=== PATIENT | male | born 1960 | race Caucasian/White ===

== ENCOUNTER 2018-10-21 15:43 | Emergency (ER) | payer OTHER ==
[~2018-10-21] VITALS: Ht 177.8 cm; Wt 122.5 kg
[~2018-10-21 15:43] MED LIST: GLUCOPHAGE1000 MG PO; K-DUR 20 MEQ T20 MEQ PO; LANTUS SUBQ; LASIX 40 MG TAB40 M1 PO; NORCO 5-325 TA1 EACH PO; OMEGA-31000 MG PO; PHENERGAN 25 MG25 M1 PO; VALIUM5 MG PO; ZOFRAN ODT4 MG PO
[2018-10-21 15:59] LABS: URINE BILIRUBIN NEGATIVE (Negative); URINE BLOOD NEGATIVE (Negative); URINE CLARITY CLEAR; URINE COLOR YELLOW; URINE GLUCOSE-RANDOM* 1+ (Negative); URINE KETONES NEGATIVE (Negative); URINE LEUKOCYTES-REFLEX NEGATIVE (Negative); URINE NITRITE-REFLEX NEGATIVE (Negative); URINE PROTEIN (DIPSTICK) NEGATIVE (Negative); URINE SPECIFIC GRAVITY 1.025 (1.005-1.035); URINE UROBILINOGEN 0.2 E.U./dl (0.2-1.0)
[2018-10-21 15:59] LABS: ABSOLUTE NEUTROPHILS 4.2 thou/uL (1.4-8.2); BASOPHILS 0.8 % (0.0-2.0); EOSINOPHILS 2.7 % (0.0-3.0); HEMATOCRIT 43.4 % (42.0-52.0); HEMOGLOBIN 14.9 gm/dL (14.0-18.0); LYMPHOCYTES 27.9 % (24.0-44.0); MCH 30.5 pg (26.0-34.0); MCHC 34.2 g/dL (28.0-37.0); MCV 89.2 fL (80.0-100.0); MONOCYTES 8.5 % (1.0-8.0); PLATELET COUNT 306 thou/uL (150-400); POLYS 60.1 % (36.0-66.0); RBC 4.87 mil/uL (4.50-6.00)
[2018-10-21 16:10] LABS: CALCIUM 9.3 mg/dL (8.5-10.1); CREATININE 0.9 mg/dL (0.7-1.3)
[2018-10-21 16:14] LABS: ALBUMIN 3.9 g/dL (3.4-5.0); TOTAL BILIRUBIN 0.5 mg/dL (<0.1-1.0); TOTAL PROTEIN 7.8 g/dL (6.4-8.2)
--- NOTE | 2018-10-21 16:34 | EKG ---
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
[2018-10-21] MEDS ORDERED: KEFLEX500 M1 PO (17:03)
[2018-10-21] MEDS ORDERED: BENTYL 20 MG TA20 M1 PO (17:03)
[2018-10-21 17:04] VITALS: BP 126/73
== END 2018-10-21 17:04 | disposition home or self-care (01) ==
LOC: ER 15:43
PROVIDERS: Emergency Medicine
DX: L03.311 Cellulitis of abdominal wall (principal); E11.9 Type 2 diabetes mellitus without complications

== ENCOUNTER 2019-03-11 10:37 | Emergency (ER) | payer OTHER ==
[~2019-03-11] VITALS: Ht 177.8 cm; Wt 117.9 kg
[~2019-03-11 10:37] MED LIST changes: +BENTYL 20 MG TA20 M1 PO; +KEFLEX500 M1 PO
[2019-03-11] MEDS ORDERED: ONGLYZA5 MG PO (10:47)
[2019-03-11] MEDS ORDERED: FUROSEMIDE 40 M40 MG PO (10:47)
[2019-03-11 11:10] LABS: URINE BILIRUBIN NEGATIVE (Negative); URINE BLOOD NEGATIVE (Negative); URINE CLARITY CLEAR; URINE COLOR YELLOW; URINE GLUCOSE-RANDOM* 3+ (Negative); URINE KETONES NEGATIVE (Negative); URINE LEUKOCYTES-REFLEX NEGATIVE (Negative); URINE NITRITE-REFLEX NEGATIVE (Negative); URINE PROTEIN (DIPSTICK) NEGATIVE (Negative); URINE SPECIFIC GRAVITY 1.015 (1.005-1.035); URINE UROBILINOGEN 0.2 E.U./dl (0.2-1.0)
[2019-03-11 12:27] LABS: ABSOLUTE NEUTROPHILS 3.6 thou/uL (1.4-8.2); BASOPHILS 0.9 % (0.0-2.0); EOSINOPHILS 4.9 % (0.0-3.0); HEMATOCRIT 46.2 % (42.0-52.0); HEMOGLOBIN 15.4 gm/dL (14.0-18.0); MCH 29.9 pg (26.0-34.0); MCHC 33.4 g/dL (28.0-37.0); MCV 89.3 fL (80.0-100.0); MONOCYTES 7.3 % (1.0-8.0); PLATELET COUNT 332 thou/uL (150-400); POLYS 57.9 % (36.0-66.0); RBC 5.17 mil/uL (4.50-6.00); RDW 14.1 % (10.5-14.5); WBC 6.2 thou/uL (4.0-11.0)
[2019-03-11 12:37] LABS: CALCIUM 9.1 mg/dL (8.5-10.1); CREATININE 0.8 mg/dL (0.7-1.3)
[2019-03-11 12:40] LABS: POTASSIUM 4.4 mmol/L (3.5-5.1)
[2019-03-11 12:43] LABS: ALBUMIN 3.7 g/dL (3.4-5.0); TOTAL BILIRUBIN 0.5 mg/dL (<0.1-1.0); TOTAL PROTEIN 7.5 g/dL (6.4-8.2)
[2019-03-11] MEDS ORDERED: FLOMAX0.4 MG PO (15:23)
[2019-03-11] MEDS ORDERED: NORFLEX100 MG PO (15:23)
[2019-03-11 15:41] VITALS: BP 143/75
== END 2019-03-11 15:42 | disposition home or self-care (01) ==
LOC: ER 10:37
PROVIDERS: Emergency Medicine
DX: R10.12 Left upper quadrant pain (principal); E11.9 Type 2 diabetes mellitus without complications